=== PATIENT | female | born 1935 | race Caucasian/White ===

== ENCOUNTER 2021-12-31 12:38 | Emergency (ER) | payer OTHER, SELFPAY ==
--- NOTE | 2021-12-31 12:39 | ED.EXTPRO ---
HPI - Extremity Problem General Stated complaint: blood clot lt leg Time Seen by Provider: 12/31/21 12:39 Source: patient Mode of arrival: ambulatory Limitations: no limitations History of Present Illness HPI Narrative: Ms. Roy is an 86-year-old female patient presenting to clinic today with complaints of possible blood clot in the left anterior leg. She is unaware if she bumped the area or not. Does have some varicose veins to the left lower leg. States that she has had a DVT approximately 40 years ago and reports that it feels similar. She is not currently taking any anticoagulants. She denies any shortness of breath or chest pain. Related Data Home Medications Medication Instructions Recorded Confirmed levothyroxine 88 mcg tablet 88 mcg DAILY 12/31/21 12/31/21 lisinopril 20 1 tablet DAILY 12/31/21 12/31/21 mg-hydrochlorothiazide 25 mg tablet lovastatin 40 mg tablet 40 mg DAILY 12/31/21 12/31/21 omeprazole 40 mg capsule,delayed 40 mg DAILY 12/31/21 12/31/21 release Allergies Allergy/AdvReac Type Severity Reaction Status Date / Time No Known Allergies Allergy Verified 12/31/21 12:50 Review of Systems Review of Systems: Pertinent positives per HPI. Patient denies any fever, chills, rash, headache, visual changes, dizziness, cough, runny nose, sore throat, shortness of breath, chest pain, palpitations, nausea, vomiting, diarrhea, constipation, abdominal pain, or any urinary issues. PMFSH Comments At the time of my signature, I reviewed and agree with the nursing past medical, surgical, social, and family history. There is no relevant family history pertinent to the patient complaint. Exam Narrative: General: Well-developed, well nourished, in no apparent distress Head: Normocephalic, atraumatic. Cardio: Regular rate and rhythm, s1 and s2 normal, no murmur appreciated. Resp: Clear to auscultation bilaterally, no rhonchi, rales, wheezing or rubs. Musculoskeletal: No deformity, soft tissue like mass under varicose veins to the anterior left leg that is tender to palpation, no erythema or redness, reports pain with walking to the area, grossly normal range of motion, muscle strength strong and equal, peripheral pulse strong, mild nonpitting edema when compared to the right leg, no cyanosis, normal gait and station Course Course Emergency Course: Portions of this record may have been created with voice recognition software. Level of Care: Express Care Visit Vital Signs Vital signs: Vital signs reviewed MDM - Extremity (Nontraumatic) MDM Narrative Medical decision making narrative: At the time of visit patient is resting comfortably on the exam table. She denies any shortness of breath or chest pain. She has a tender soft tissue mass to the left anterior leg that could be potentially a blood clot-possibly a superficial clot due to a popping of a varicose vein. She does have history of DVT. I recommend transfer to the emergency room for further evaluation however patient declines and would like to sign out AMA. Risk and benefits was X explained to the patient she voiced understanding. AMA was signed the patient was discharged. Discharge Plan Discharge Clinical Impression: Acute pain of left lower extremity, Varicose veins of left lower extremity, Mass of soft tissue Patient Disposition: Left Against Medical Advice Condition: Stable Instructions: Deep Vein Thrombosis (ED), Leg Pain (ED), Soft Tissue Mass (ED) Additional Instructions: Patient has history of DVT in the past. Recommend transfer to the ED for further evaluation to rule out blood clot to the left lower extremity. Patient leaving facility against medical advice and does not wish to go to the ER to have evaluation completed. Risk and benefits explained to the patient she voiced understanding of the risk and benefits. Go to the emergency room immediately if symptoms worsen-you develop chest pain, shortness of breath, increasin
[2021-12-31 12:48] VITALS: BP 127/78; PULSE 78; RESP 16; TEMP 36.5; O2SAT 98
--- NOTE | 2021-12-31 12:58 | PC.NURSE ---
MACHINE DYER discussed treatment options with pt. MACHINE DYER believes pt's symptoms are most likely related to a varicose vein, but can not definitively rule out a DVT without US, which cannot be obtained at this facility. MACHINE DYER recommended transfer to ER for further evaluation, which pt refused. MACHINE DYER discussed risks and benefits. Pt verbalized understanding, still refuses transfer to ER.
== END 2021-12-31 13:06 | disposition left against medical advice (07) ==
PROVIDERS: Emergency Provider Nurse Practitioner Family
DX: M79.662 Pain in left lower leg (principal); I83.92 Asymptomatic varicose veins of left lower extremity; R22.42 Localized swelling, mass and lump, left lower limb; Z86.718 Personal history of other venous thrombosis and embolism
CPT/HCPCS: 99211; G0463